=== PATIENT | female | born 1970 | race American Indian/Alaskan Native ===

== ENCOUNTER 2017-11-28 11:24 | Emergency (ER) | payer OTHER ==
[2017-11-28 11:34] VITALS: BP 156/97
--- NOTE | 2017-11-28 13:17 | Emergency Department Report ---
ED General Adult HPI - General Chief complaint: Upper Respiratory Infection Stated complaint: RUNNY NOSE/COUGH Time Seen by Provider: 11/28/17 12:47 Source: patient Mode of arrival: Ambulatory Limitations: No Limitations - History of Present Illness Initial comments: Patient presents to the emergency department for irritation to her vaginal region. The patient states that she has recently been using latex condoms and she has allergy to them when she noticed that she has some irritation to her vaginal region. Patient also complains of nasal congestion and a runny nose. Patient denies any vaginal discharge or pain upon urination. Symptoms have been present for greater than 3 days nothing seems to make his symptoms better or worse. She has no other complaints Severity scale (0 -10): 0 Quality: burning Consistency: constant Improves with: none Worsens with: none Associated Symptoms: denies other symptoms Treatments Prior to Arrival: none - Related Data Previous Rx's Medication Instructions Recorded Last Taken Type Lidocaine Viscous 2% 15 ml MM BID #120 udc 11/28/17 Unknown Rx Prednisone [predniSONE 10 mg 10 mg PO .TAPER #1 tab.ds.pk 11/28/17 Unknown Rx (6-Day Pack, 21 Tabs)] Allergies Allergy/AdvReac Type Severity Reaction Status Date / Time aspirin Allergy Rash Verified 11/28/17 11:35 latex Allergy Itching Verified 11/28/17 11:35 morphine Allergy Hives Verified 11/28/17 11:35 Penicillins Allergy Shortness Verified 11/28/17 11:35 of Breath cephalexin [From Keflex] AdvReac Shortness Verified 11/28/17 11:35 of Breath ED Review of Systems ROS: Stated complaint: RUNNY NOSE/COUGH Other details as noted in HPI Comment: All other systems reviewed and negative Constitutional: denies: chills, fever Eyes: denies: eye pain, eye discharge, vision change ENT: denies: ear pain, throat pain Respiratory: denies: cough, shortness of breath, wheezing Cardiovascular: denies: chest pain, palpitations Endocrine: no symptoms reported Gastrointestinal: denies: abdominal pain, nausea, diarrhea Genitourinary: denies: urgency, dysuria, discharge Musculoskeletal: denies: back pain, joint swelling, arthralgia Skin: denies: rash, lesions Neurological: denies: headache, weakness, paresthesias Psychiatric: denies: anxiety, depression Hematological/Lymphatic: denies: easy bleeding, easy bruising ED Past Medical Hx - Past Medical History Previous Medical History?: No - Surgical History Past Surgical History?: Yes Additional Surgical History: TUBALIGATION - Social History Smoking Status: Never Smoker Substance Use Type: Alcohol - Medications Home Medications: Home Medications Medication Instructions Recorded Confirmed Last Taken Type Lidocaine Viscous 2% 15 ml MM BID #120 udc 11/28/17 Unknown Rx Prednisone [predniSONE 10 mg 10 mg PO .TAPER #1 tab.ds.pk 11/28/17 Unknown Rx (6-Day Pack, 21 Tabs)] ED Physical Exam - General Limitations: No Limitations General appearance: alert, in no apparent distress - Head Head exam: Present: atraumatic, normocephalic - Eye Eye exam: Present: normal appearance - ENT ENT exam: Present: mucous membranes moist, other (pill nasal and oral mucosa that are clean in appearance) - Neck Neck exam: Present: normal inspection - Respiratory Respiratory exam: Present: normal lung sounds bilaterally. Absent: respiratory distress - Cardiovascular Cardiovascular Exam: Present: regular rate, normal rhythm. Absent: systolic murmur, diastolic murmur, rubs, gallop - GI/Abdominal GI/Abdominal exam: Present: soft, normal bowel sounds - External exam: Present: other (chaperoned by nurse Tayler Singh. external genitalia without lesions internally the labia minora have areas of plaque like lesions that appear to be due to irritation. No ulcer like lesions suggesting herpes are on exam) - Extremities Exam Extremities exam: Present: normal inspection - Back Exam Back exam: Present: normal inspection - Neurological Exam Neurological exam: Present: alert, oriented X3 - Psychiatric Psychiatric exam: Present: normal affect, normal mood - Skin Skin exam: Present: warm, dry, intact, normal color. Absent: rash ED Course Vital Signs 11/28/17 11:29 Temperature 98.2 F Pulse Rate 76 Respiratory 20 Rate Blood Pressure 156/97 O2 Sat by Pulse 100 Oximetry ED Medical Decision Making - Medical Decision Making Discussed with patient the need to use nasal Flonase and Zyrtec for allergies. Discussed with patient the need to use polyurethane condoms Critical care attestation.: If time is entered above; I have spent that time in minutes in the direct care of this critically ill patient, excluding procedure time. ED Disposition Clinical Impression: Vaginal irritation, Seasonal allergies Disposition: DC- TO HOME OR SELFCARE Is pt being admited?: No Does the pt Need Aspirin: No Condition: Stable Instructions: Allergic Rhinitis (ED) Prescriptions: Lidocaine Viscous 2% 15 ml MM BID #120 udc Prednisone [predniSONE 10 mg (6-Day Pack, 21 Tabs)] 10 mg PO .TAPER #1 tab.ds.pk Referrals: JOSE ANTONIO ORDAZ MD [Primary Care Provider] - 3-5 Days Time of Disposition: 13:17
== END 2017-11-28 13:40 | disposition home or self-care (01) ==
LOC: ED 11:24
DX: N89.8 Other specified noninflammatory disorders of vagina (principal); Z88.6 Allergy status to analgesic agent; Z91.040 Latex allergy status; Z88.0 Allergy status to penicillin; Z88.5 Allergy status to narcotic agent; Z98.51 Tubal ligation status
CPT/HCPCS: 99282

== ENCOUNTER 2018-09-11 14:01 | Emergency (ER) | payer SELFPAY ==
[2018-09-11] MEDS ORDERED: ZOFRAN ODT PO ONE ×2 (14:34→15:53)
--- NOTE | 2018-09-11 14:34 | Emergency Department Report ---
Addendum entered and electronically signed by GIOVANA WHELAN FNP 09/11/18 14:38: Blank Doc - Documentation Documentation: Correction patient will be seen on Main Side for further evaluation. Original Note: Blank Doc - Documentation Documentation: This is a 47 y.o. female that presents with alcohol withdrawal. PMH of ulcerative colitis. She reports nausea, vomiting, palpitations, and tremors. She reports last drink was 3 hours ago and craving a drink now. Patient states she tried to detox at home and couldn't tolerate withdrawals and continued drinking. Patient states she tried to check herself into [facility] and was sent here. Denies SI/HI, hallucinations, and diarrhea. Ordered: Labs Fast track for further evaluation.
[2018-09-11 15:16] LABS: BUN/Creatinine Ratio 4; Blood Urea Nitrogen 3 mg/dL (7-17); Calcium 8.8 mg/dL (8.4-10.2); Hemolysis Index 8
[2018-09-11 15:18] LABS: Hematocrit 33.7 % (30.3-42.9); Hemoglobin 10.9 gm/dl (10.1-14.3); Mean Corpuscular HGB Conc 32 % (30-34); Mean Corpuscular Volume 73 fl (79-97); Red Blood Count 4.62 M/mm3 (3.65-5.03); Red Cell Distribution Width 23.4 % (13.2-15.2)
[2018-09-11 15:19] LABS: Basophils % (Auto) 0.9 % (0.0-1.8); Eosinophils % (Auto) 0.4 % (0.0-4.3); Lymphocytes % (Auto) 48.5 % (13.4-35.0); Monocytes % (Auto) 5.6 % (0.0-7.3); Platelet Count 269 K/mm3 (140-440)
[2018-09-11 15:20] LABS: Basophils # (Auto) 0.1 K/mm3 (0.0-0.1); Lymphocytes # (Auto) 4.1 K/mm3 (1.2-5.4); Monocytes # (Auto) 0.5 K/mm3 (0.0-0.8)
[2018-09-11] MEDS ORDERED: ATIVAN PO ONE (15:52)
[2018-09-11 16:18] LABS: Bilirubin,Urine NEG (Negative); Blood,Urine NEG (Negative); Color,Urine Straw (Yellow); Protein,Urine <15 mg/dL mg/dL (Negative); Urobilinogen,Urine < 2.0 mg/dL (<2.0)
[2018-09-11 16:25] LABS: Amphetamine Screen,Urine PRESUMPTIVE NEGATIVE; Benzodiazepines Screen,Urine PRESUMPTIVE NEGATIVE; Cannabinoid Screen,Urine PRESUMPTIVE NEGATIVE; Cocaine Screen,Urine PRESUMPTIVE NEGATIVE; Methadone Screen,Urine PRESUMPTIVE NEGATIVE; Opiate Screen,Urine PRESUMPTIVE NEGATIVE
[2018-09-11 16:32] LABS: RBC,Urine < 1.0 /HPF (0.0-6.0); WBC,Urine < 1.0 /HPF (0.0-6.0)
--- NOTE | 2018-09-11 17:38 | Emergency Department Report ---
ED Alcohol HPI - General Chief Complaint: Alcohol Stated Complaint: DETOX Time Seen by Provider: 09/11/18 14:30 Source: patient Mode of arrival: Ambulatory Limitations: No Limitations - History of Present Illness Initial Comments: Mrs. Valenzuela is a very pleasant 47-year-old female with history of bipolar affective disorder, depression, alcoholism who presents with nausea vomiting and need for detox. She has been an alcoholic for several years. She normally drinks 2-3 bottles of alcohol beginning in the morning. She develops tremors and vomiting if she does not drink alcohol. She is motivated to stop drinking for the sake of her son at the bedside. She has been without medical or psychiatric care for 2 years. Previously took lithium to address bipolar disorder. She denies suicidal or homicidal ideation at this time. Recently she has developed severe anxiety. She does not want to leave home. She has become paranoid and uncomfortable unknown people. She was referred from [facility]. Complaint: desires rehab Last Drink: just [employer] Chronic Alcohol Use: Yes Recent Trauma: No Associated Symptoms: nausea, vomiting, tremors - Related Data Previous Rx's Medication Instructions Recorded Last Taken Type Lidocaine Viscous 2% 15 ml MM BID #120 udc 11/28/17 Unknown Rx Prednisone [predniSONE 10 mg 10 mg PO .TAPER #1 tab.ds.pk 11/28/17 Unknown Rx (6-Day Pack, 21 Tabs)] Promethazine [Phenergan TAB] 25 mg PO Q6HR PRN #10 tab 09/11/18 Unknown Rx Allergies Allergy/AdvReac Type Severity Reaction Status Date / Time aspirin Allergy Rash Verified 09/11/18 14:35 latex Allergy Itching Verified 09/11/18 14:35 morphine Allergy Hives Verified 09/11/18 14:35 Penicillins Allergy Shortness Verified 09/11/18 14:35 of Breath cephalexin [From Keflex] AdvReac Shortness Verified 09/11/18 14:35 of Breath ED Review of Systems ROS: Stated complaint: DETOX Other details as noted in HPI Comment: All other systems reviewed and negative Constitutional: denies: fever, malaise Respiratory: denies: cough Cardiovascular: denies: chest pain ED Past Medical Hx - Past Medical History Previous Medical History?: Yes Hx Psychiatric Treatment: Yes (ETOH abuse and bipolar disorder) - Surgical History Past Surgical History?: Yes Additional Surgical History: TUBAl LIGATION - Family History Family history: diabetes, hypertension, other (alcoholism in several family members) - Social History Smoking Status: Never Smoker Substance Use Type: Alcohol - Medications Home Medications: Home Medications Medication Instructions Recorded Confirmed Last Taken Type Lidocaine Viscous 2% 15 ml MM BID #120 udc 11/28/17 Unknown Rx Prednisone [predniSONE 10 mg 10 mg PO .TAPER #1 tab.ds.pk 11/28/17 Unknown Rx (6-Day Pack, 21 Tabs)] Promethazine [Phenergan TAB] 25 mg PO Q6HR PRN #10 tab 09/11/18 Unknown Rx ED Physical Exam - General Limitations: No Limitations General appearance: alert, in no apparent distress - Head Head exam: Present: atraumatic, normocephalic - Eye Eye exam: Present: normal appearance - ENT ENT exam: Present: mucous membranes moist - Neck Neck exam: Present: normal inspection, full ROM. Absent: tenderness, meningismus - Respiratory Respiratory exam: Present: normal lung sounds bilaterally. Absent: respiratory distress, wheezes, rales, rhonchi - Cardiovascular Cardiovascular Exam: Present: regular rate, normal rhythm, normal heart sounds. Absent: systolic murmur, diastolic murmur, rubs, gallop - GI/Abdominal GI/Abdominal exam: Present: soft, normal bowel sounds. Absent: distended, tenderness, guarding, rebound - Extremities Exam Extremities exam: Present: normal inspection - Back Exam Back exam: Present: normal inspection - Neurological Exam Neurological exam: Present: alert, oriented X3 - Psychiatric Psychiatric exam: Present: normal affect, normal mood - Skin Skin exam: Present: warm, dry, intact, normal color. Absent: rash ED Course Vital Signs 09/11/18 09/11/18 14:31 16:06 Temperature 97.8 F Pulse Rate 103 H 91 H Respiratory 20 13 Rate Blood Pressure 154/103 151/85 [Right] O2 Sat by Pulse 98 97 Oximetry ED Medical Decision Making - Lab Data Result diagrams: 09/11/18 14:49 09/11/18 14:49 Laboratory Results - last 24 hr 09/11/18 09/11/18 09/11/18 14:49 14:49 14:49 WBC RBC Hgb Hct MCV MCH MCHC RDW Plt Count Lymph % (Auto) [place] % (Auto) Eos % (Auto) Baso % (Auto) Lymph # Frederick # Eos # Baso # Seg Neutrophils % Seg Neutrophils # Sodium 140 Potassium 3.3 L Chloride 97.1 L Carbon Dioxide 28 Anion Gap 18 BUN 3 L Creatinine 0.7 Estimated GFR > 60 BUN/Creatinine Ratio 4 Glucose 117 H Calcium 8.8 Urine Color Urine Turbidity Urine pH Ur Specific [place] Urine Protein Urine Glucose (UA) Urine Ketones Urine Blood Urine Nitrite Urine Bilirubin Urine Urobilinogen Ur Leukocyte Esterase Urine WBC (Auto) Urine RBC (Auto) U Epithel Cells (Auto) Salicylates < 0.3 L Urine Opiates Screen Urine Methadone Screen Acetaminophen < 5.0 L Ur Barbiturates Screen Ur Phencyclidine Scrn Ur Amphetamines Screen U Benzodiazepines Scrn Urine Cocaine Screen U Marijuana (THC) Screen Drugs of Abuse Note Plasma/Serum Alcohol 09/11/18 09/11/18 09/11/18 14:49 14:49 15:35 WBC 8.5 RBC 4.62 Hgb 10.9 Hct 33.7 MCV 73 L MCH 24 L MCHC 32 RDW 23.4 H Plt Count 269 Lymph % (Auto) 48.5 H Frederick % (Auto) 5.6 Eos % (Auto) 0.4 Baso % (Auto) 0.9 Lymph # 4.1 Frederick # 0.5 Eos # 0.0 Baso # 0.1 Seg Neutrophils % 44.6 Seg Neutrophils # 3.8 Sodium Potassium Chloride Carbon Dioxide Anion Gap BUN Creatinine Estimated GFR BUN/Creatinine Ratio Glucose Calcium Urine Color Straw Urine Turbidity Clear Urine pH 6.0 Ur Specific [place] 1.002 L Urine Protein <15 mg/dl Urine Glucose (UA) Neg Urine Ketones Neg Urine Blood Neg Urine Nitrite Neg Urine Bilirubin Neg Urine Urobilinogen < 2.0 Ur Leukocyte Esterase Neg Urine WBC (Auto) < 1.0 Urine RBC (Auto) < 1.0 U Epithel Cells (Auto) < 1.0 Salicylates Urine Opiates Screen Urine Methadone Screen Acetaminophen Ur Barbiturates Screen Ur Phencyclidine Scrn Ur Amphetamines Screen U Benzodiazepines Scrn Urine Cocaine Screen U Marijuana (THC) Screen Drugs of Abuse Note Plasma/Serum Alcohol 0.34 H 09/11/18 15:35 WBC RBC Hgb Hct MCV MCH MCHC RDW Plt Count Lymph % (Auto) [place] % (Auto) Eos % (Auto) Baso % (Auto) Lymph # Frederick # Eos # Baso # Seg Neutrophils % Seg Neutrophils # Sodium Potassium Chloride Carbon Dioxide Anion Gap BUN Creatinine Estimated GFR BUN/Creatinine Ratio Glucose Calcium Urine Color Urine Turbidity Urine pH Ur Specific [place] Urine Protein Urine Glucose (UA) Urine Ketones Urine Blood Urine Nitrite Urine Bilirubin Urine Urobilinogen Ur Leukocyte Esterase Urine WBC (Auto) Urine RBC (Auto) U Epithel Cells (Auto) Salicylates Urine Opiates Screen Presumptive negative Urine Methadone Screen Presumptive negative Acetaminophen Ur Barbiturates Screen Presumptive negative Ur Phencyclidine Scrn Presumptive negative Ur Amphetamines Screen Presumptive negative U Benzodiazepines Scrn Presumptive negative Urine Cocaine Screen Presumptive negative U Marijuana (THC) Screen Presumptive negative Drugs of Abuse Note Disclamer Plasma/Serum Alcohol - Medical Decision Making Ms. Valenzuela is a 46-year-old female presents with request for alcohol rehabilitation. She has evidence of acute alcohol ingestion. Without chest or abdominal pain present I feel the nausea vomiting is due to over imbibing. No indication of alcohol withdrawal. Our mental health nurse assessor provided outpatient referral to [facility]. Patient is discharged home in stable condition. Critical care attestation.: If time is entered above; I have spent that time in minutes in the direct care of this critically ill patient, excluding procedure time. ED Disposition Clinical Impression: Acute alcohol intoxication, Alcoholism, Encounter for alcohol rehabilitation Disposition: DC-01 TO HOME OR SELFCARE Is pt being admited?: No Does the pt Need Aspirin: No Condition: Stable Additional Instructions: Please go to [facility] tomorrow at 8:00 AM Prescriptions: Promethazine [Phenergan TAB] 25 mg PO Q6HR PRN #10 tab PRN Reason: Nausea
[2018-09-11 17:52] VITALS: BP 115/62
== END 2018-09-11 18:10 | disposition home or self-care (01) ==
LOC: ED 14:01
DX: F10.120 Alcohol abuse with intoxication, uncomplicated (principal); Z71.41 Alcohol abuse counseling and surveillance of alcoholic; F31.9 Bipolar disorder, unspecified; Z88.6 Allergy status to analgesic agent; Z91.040 Latex allergy status; Z88.0 Allergy status to penicillin; Z88.1 Allergy status to other antibiotic agents; Z98.51 Tubal ligation status
CPT/HCPCS: 36415; 80048; 80307; 81001; 85025; 99283; G0480; 80320; Q0162

== ENCOUNTER 2019-07-07 17:03 | Emergency (ER) | payer OTHER ==
--- NOTE | 2019-07-07 17:19 | Event Note ---
ED Screening Note Date of service: 07/07/19 Time: 17:14 ED Screening Note: 48 y o female presents with chest pain with inhalation radiating right shoulder pt has no pMH This initial assessment/diagnostic orders/clinical plan/treatment(s) is/are subject to change based on patients health status, clinical progression and re- assessment by fellow clinical providers in the ED. Further treatment and workup at subsequent clinical providers discretion. Patient/guardian urged not to elope from the ED as their condition may be serious if not clinically assessed and managed. Initial orders include: labs,
--- NOTE | 2019-07-07 18:11 | XRay Report ---
CHEST 2 VIEWS INDICATION: pain with inha. COMPARISON: None. FINDINGS: Support devices: None. Heart: Within normal limits. Lungs/Pleura: Mild basilar atelectasis. No significant infiltrate. No significant pleural effusion. IMPRESSION: Mild basilar atelectasis. Signer Name: Chaim Tomlin MD Signed: 07/07/2019 6:07 PM Workstation Name: [id number]
[2019-07-07 19:12] LABS: Basophils # (Auto) 0.1 K/mm3 (0.0-0.1); Basophils % (Auto) 0.8 % (0.0-1.8); Eosinophils # (Auto) 0.2 K/mm3 (0.0-0.4); Eosinophils % (Auto) 1.4 % (0.0-4.3); Hematocrit 40.2 % (30.3-42.9); Hemoglobin 13.1 gm/dl (10.1-14.3); Lymphocytes % (Auto) 16.4 % (13.4-35.0); Mean Corpuscular HGB Conc 33 % (30-34); Mean Corpuscular Volume 83 fl (79-97); Monocytes # (Auto) 1.4 K/mm3 (0.0-0.8); Monocytes % (Auto) 11.3 % (0.0-7.3); Platelet Count 330 K/mm3 (140-440); Red Blood Count 4.86 M/mm3 (3.65-5.03); Red Cell Distribution Width 14.2 % (13.2-15.2)
[2019-07-07 20:06] LABS: BUN/Creatinine Ratio 10; Blood Urea Nitrogen 7 mg/dL (7-17); Hemolysis Index 7
[2019-07-07 20:07] LABS: Creatine Kinase MB < 1.0 ng/mL (0.0-4.0)
[2019-07-07] MEDS ORDERED: traMADol 50 MG TAB PO ONE (20:30)
--- NOTE | 2019-07-07 20:51 | Emergency Department Report ---
ED General Adult HPI - General Chief complaint: Dyspnea/Respdistress Stated complaint: SOB Source: patient Mode of arrival: Ambulatory Limitations: No Limitations - History of Present Illness Initial comments: Ms Valenzuela is a 48 y/o aaf who presents for right lateral chest pain and sob x 3 days , pt denies sob no n/v no wheezing no diaphoresis. symptoms are exacerbated by activity , pt is relieved by nothing tried, pt denies substance . Onset/Timin -: Gradual, days(s) Location: chest Radiation: non-radiation Severity scale (0 -10): 5 Quality: sharp Consistency: intermittent Improves with: none Worsens with: movement Associated Symptoms: cough. denies: shortness of breath Treatments Prior to Arrival: none - Related Data Previous Rx's Medication Instructions Recorded Last Taken Type Lidocaine Viscous 2% 15 ml MM BID #120 udc 11/28/17 Unknown Rx Prednisone [predniSONE 10 mg 10 mg PO .TAPER #1 tab.ds.pk 11/28/17 Unknown Rx (6-Day Pack, 21 Tabs)] Promethazine [Phenergan] 25 mg PO Q6HR PRN #10 tab 09/11/18 Unknown Rx Azithromycin [Zithromax Z-ISIS] 250 mg PO DAILY #6 tab 07/07/19 Unknown Rx traMADoL [Ultram] 50 mg PO Q6HR PRN #12 tablet 07/07/19 Unknown Rx Allergies Allergy/AdvReac Type Severity Reaction Status Date / Time aspirin Allergy Rash Verified 09/11/18 14:35 latex Allergy Itching Verified 09/11/18 14:35 morphine Allergy Hives Verified 09/11/18 14:35 Penicillins Allergy Shortness Verified 09/11/18 14:35 of Breath cephalexin [From Keflex] AdvReac Shortness Verified 09/11/18 14:35 of Breath ED Review of Systems ROS: Stated complaint: SOB Other details as noted in HPI Constitutional: denies: chills, fever Eyes: denies: eye pain, eye discharge, vision change ENT: denies: ear pain, throat pain Respiratory: denies: cough, shortness of breath, wheezing Cardiovascular: chest pain (chest wall pain ). denies: palpitations Endocrine: no symptoms reported Gastrointestinal: denies: abdominal pain, nausea, diarrhea Genitourinary: denies: urgency, dysuria, discharge Musculoskeletal: denies: back pain, joint swelling, arthralgia Skin: denies: rash, lesions Neurological: denies: headache, weakness, paresthesias Psychiatric: denies: anxiety, depression Hematological/Lymphatic: denies: easy bleeding, easy bruising ED Past Medical Hx - Past Medical History Previous Medical History?: Yes Hx Hypertension: Yes (no meds) Hx Psychiatric Treatment: Yes (ETOH abuse and bipolar disorder) - Surgical History Past Surgical History?: Yes Additional Surgical History: TUBAl LIGATION - Social History Smoking Status: Never Smoker Substance Use Type: Alcohol - Medications Home Medications: Home Medications Medication Instructions Recorded Confirmed Last Taken Type Lidocaine Viscous 2% 15 ml MM BID #120 udc 11/28/17 Unknown Rx Prednisone [predniSONE 10 mg 10 mg PO .TAPER #1 tab.ds.pk 11/28/17 Unknown Rx (6-Day Pack, 21 Tabs)] Promethazine [Phenergan] 25 mg PO Q6HR PRN #10 tab 09/11/18 Unknown Rx Azithromycin [Zithromax Z-ISIS] 250 mg PO DAILY #6 tab 07/07/19 Unknown Rx traMADoL [Ultram] 50 mg PO Q6HR PRN #12 tablet 07/07/19 Unknown Rx ED Physical Exam - General Limitations: No Limitations General appearance: alert, in no apparent distress - Head Head exam: Present: atraumatic, normocephalic - Eye Eye exam: Present: normal appearance, PERRL, EOMI Pupils: Present: normal accommodation - ENT ENT exam: Present: mucous membranes moist - Neck Neck exam: Present: normal inspection, full ROM. Absent: tenderness - Respiratory Respiratory exam: Present: normal lung sounds bilaterally, chest wall tenderness (right lateral chest wall ). Absent: respiratory distress, wheezes, stridor - Cardiovascular Cardiovascular Exam: Present: regular rate, normal rhythm, normal heart sounds. Absent: systolic murmur, diastolic murmur, rubs, gallop - GI/Abdominal GI/Abdominal exam: Present: soft, normal bowel sounds. Absent: distended, tenderness, bruit, hernia - Rectal Rectal exam: Present: deferred - Extremities Exam Extremities exam: Present: normal inspection, full ROM, normal capillary refill. Absent: tenderness, pedal edema, joint swelling - Back Exam Back exam: Present: normal inspection, full ROM. Absent: tenderness, CVA tenderness (R), CVA tenderness (L) - Neurological Exam Neurological exam: Present: alert, oriented X3, CN II-XII intact, normal gait, reflexes normal. Absent: motor sensory deficit - Psychiatric Psychiatric exam: Present: normal affect, normal mood - Skin Skin exam: Present: warm, dry, intact, normal color. Absent: rash ED Course Vital Signs 07/07/19 07/07/19 07/08/19 17:07 21:03 00:34 Temperature 98.8 F Pulse Rate 108 H Respiratory 20 20 20 Rate Blood Pressure 154/91 O2 Sat by Pulse 98 Oximetry ED Medical Decision Making - Lab Data Result diagrams: 07/07/19 18:07 07/07/19 18:07 - Radiology Data Radiology results: report reviewed, image reviewed cta neg for pe, cxr bilat atelectasis mild - Medical Decision Making PERC Score Age ?50 No0 HR ?100 Yes+1 O? sat on room air <95% No0 Unilateral leg swelling No0 Hemoptysis No0 Recent surgery or trauma Surgery or trauma ?4 weeks ago requiring treatment with general anesthesia No0 Prior PE or DVT No0 Hormone use Oral contraceptives, hormone replacement or estrogenic hormones use in males or female patients No0 1 criteria If any criteria are positive, the PERC rule cannot be used to rule out PE in this patient. Wells Score: Why Use Clinical signs and symptoms of DVT No0 PE is #1 diagnosis OR equally likely No0 Heart rate > 100 Yes+1.5 Immobilization at least 3 days OR surgery in the previous 4 weeks No0 Previous, objectively diagnosed PE or DVT No0 Hemoptysis No0 Malignancy w/ treatment within 6 months or palliative No0 1.5 points Low risk group: 1.3% chance of PE in an ED population. Pt denies fall injury or trauma, there is no crepitus, no swelling, no bruising, pain is reproducible to palpation. this is likely early CAP, plan , zpack, albuterol, ultram follow up with pcp in 2-3 days , return to ed if symptoms worsen. Critical care attestation.: If time is entered above; I have spent that time in minutes in the direct care of this critically ill patient, excluding procedure time. ED Disposition Clinical Impression: CAP (community acquired pneumonia) Qualifiers: Lung location: unspecified part of lung Disposition: DC-01 TO HOME OR SELFCARE Is pt being admited?: No Does the pt Need Aspirin: No Condition: Stable Instructions: Costochondritis (ED), Community-acquired Pneumonia (ED), Bacteri al Pneumonia (ED) Prescriptions: traMADoL [Ultram] 50 mg PO Q6HR PRN #12 tablet PRN Reason: Pain Azithromycin [Zithromax Z-ISIS] 250 mg PO DAILY #6 tab Referrals: [facility] [Outside] - 3-5 Days Forms: Work/School Release Form(ED) Time of Disposition: 01:14
[2019-07-08] MEDS ORDERED: HYDROcodone/ACETAMINOPHEN 5-325 MG TAB PO ONE (00:29)
[2019-07-08] MEDS ORDERED: HYDROcodone/ACETAMINOPHEN 5-325 MG TAB ONE (00:33)
[2019-07-08 00:47] LABS: Bacteria,Urine 1+ /HPF (Negative); Bilirubin,Urine NEG (Negative); Blood,Urine LG (Negative); Color,Urine Yellow (Yellow); Mucus,Urine FEW /HPF; Protein,Urine <15 mg/dL mg/dL (Negative); Urobilinogen,Urine < 2.0 mg/dL (<2.0)
--- NOTE | 2019-07-08 01:01 | Cat Scan Report ---
CTA CHEST WITH IV CONTRAST INDICATION / CLINICAL INFORMATION: chest pain , sob, pos ddimer. TECHNIQUE: Axial CT images were obtained through the chest after injection of IV contrast. 3 plane MIP and/or 3D reconstructions were produced. All CT scans at this location are performed using CT dose reduction f or ALARA by means of automated exposure control. COMPARISON: None available. FINDINGS: PULMONARY ARTERIES: No pulmonary emboli. THORACIC AORTA: No significant abnormality. HEART: No significant abnormality. CORONARY ARTERIES: No significant calcification. PLEURA: No pleural effusion. No pneumothorax. LYMPH NODES: No significant adenopathy. LUNGS: Minimum atelectasis both lower lobes. ADDITIONAL FINDINGS: None. UPPER ABDOMEN: No acute findings. SKELETAL STRUCTURES: No significant osseous abnormality. IMPRESSION: 1. No CT evidence for pulmonary embolism. 2. Subsegmental atelectasis both lower lobes Signer Name: John Richey MD Signed: 07/08/2019 12:56 AM Workstation Name: [id number]
[2019-07-08 02:03] VITALS: BP 124/79
== END 2019-07-08 02:20 | disposition home or self-care (01) ==
LOC: ED 17:03
DX: J18.9 Pneumonia, unspecified organism (principal); I10 Essential (primary) hypertension; F31.9 Bipolar disorder, unspecified; Z98.51 Tubal ligation status; Z79.899 Other long term (current) drug therapy; Z91.040 Latex allergy status; Z88.0 Allergy status to penicillin; Z88.6 Allergy status to analgesic agent; Z88.8 Allergy status to other drugs, medicaments and biological substances
CPT/HCPCS: 36415; 71046; 71275; 80048; 81001; 82550; 82553; 83880; 84484; 85025; 85379; 93005; 93010; 99284; Q9967; 80320; G0480

== ENCOUNTER 2020-05-26 22:45 | Emergency (ER) | payer OTHER ==
[2020-05-27 00:37] VITALS: BP 143/85
[2020-05-27] MEDS ORDERED: predniSONE 20 MG TAB PO ONE (02:13)
[2020-05-27] MEDS ORDERED: HYDROcodone/ACETAMINOPHEN 7.5-325MG TAB PO ONE (02:14)
[2020-05-27] MEDS ORDERED: ONDANSETRON 4 MG ODT TAB PO ONE (02:14)
[2020-05-27] MEDS ORDERED: COLCHICINE 0.6 MG CAP PO ONE (02:14)
--- NOTE | 2020-05-27 02:51 | Emergency Department Report ---
ED Extremity Problem HPI - General Chief complaint: Extremity Problem,Nontraumatic Stated complaint: LF FOOT SWOLLEN Source: patient Mode of arrival: Ambulatory Limitations: No Limitations - History of Present Illness Initial comments: Patient is a 49-year-old -[place] female with history of hypertension and chronic gouty arthropathy, chronic alcohol abuse and bipolar disorder who presents to the ED with complaint of acute onset persistent severe left ankle pain and swelling for the last 12 hours, stating that she believes it is the flare of her gout. Patient states that the pain is worsened such that she is unable to bear weight on the left ankle because of severe pain. Patient admits to having been eating seafood, red meat and alcohol consumption. Patient denies traumatic injury, heavy lifting, fall, numbness and tingling or weakness of left leg, dizziness, syncope, fever, chills, chest pain or shortness of breath or heavy lifting. MD Complaint: extremity pain (Left ankle pain and swelling), extremity swelling (left ankle pain and swelling), joint swelling (left ankle pain and swelling), joint paint (left ankle swelling) -: Sudden, hour(s) (12) Location: lower extremity (left ankle) History of Same: No -: Yes arthralgia (left ankle pain and swelling) Radiation: none Severity scale (0 -10): 7 Quality: aching, sharp, constant Consistency: constant Improves with: nothing Worsens with: weight bearing, walking, palpation Associated Symptoms: denies other symptoms, arthralgias (left ankle) - Related Data Previous Rx's Medication Instructions Recorded Last Taken Type Lidocaine Viscous 2% 15 ml MM BID #120 udc 11/28/17 Unknown Rx Prednisone [predniSONE 10 mg 10 mg PO .TAPER #1 tab.ds.pk 11/28/17 Unknown Rx (6-Day Pack, 21 Tabs)] Promethazine [Phenergan] 25 mg PO Q6HR PRN #10 tab 09/11/18 Unknown Rx Azithromycin [Zithromax Z-ISIS] 250 mg PO DAILY #6 tab 07/07/19 Unknown Rx traMADoL [Ultram] 50 mg PO Q6HR PRN #12 tablet 07/07/19 Unknown Rx Colchicine 0.6 mg PO Q8H PRN #15 capsule 05/27/20 Unknown Rx Indomethacin 50 mg PO Q8H PRN #45 capsule 05/27/20 Unknown Rx predniSONE [Deltasone] 60 mg PO QDAY #15 tab 05/27/20 Unknown Rx traMADoL [Ultram] 50 mg PO Q6HR PRN #12 tablet 05/27/20 Unknown Rx Allergies Allergy/AdvReac Type Severity Reaction Status Date / Time aspirin Allergy Rash Verified 09/11/18 14:35 latex Allergy Itching Verified 09/11/18 14:35 morphine Allergy Hives Verified 09/11/18 14:35 Penicillins Allergy Shortness Verified 09/11/18 14:35 of Breath cephalexin [From Keflex] AdvReac Shortness Verified 09/11/18 14:35 of Breath ED Review of Systems ROS: Stated complaint: LF FOOT SWOLLEN Other details as noted in HPI Constitutional: denies: chills, fever Eyes: denies: eye pain, eye discharge, vision change ENT: denies: ear pain, throat pain Respiratory: denies: cough, shortness of breath, wheezing Cardiovascular: denies: chest pain, palpitations Endocrine: no symptoms reported Gastrointestinal: denies: abdominal pain, nausea, diarrhea Genitourinary: denies: urgency, dysuria, discharge Musculoskeletal: joint swelling (left ankle), arthralgia (left ankle pain). denies: back pain Skin: denies: rash, lesions Neurological: denies: headache, weakness, paresthesias Psychiatric: denies: anxiety, depression Hematological/Lymphatic: denies: easy bleeding, easy bruising ED Past Medical Hx - Past Medical History Hx Hypertension: Yes (no meds) Hx Psychiatric Treatment: Yes (ETOH abuse and bipolar disorder) - Surgical History Additional Surgical History: TUBAl LIGATION - Social History Smoking Status: Never Smoker Substance Use Type: None - Medications Home Medications: Home Medications Medication Instructions Recorded Confirmed Last Taken Type Lidocaine Viscous 2% 15 ml MM BID #120 udc 11/28/17 Unknown Rx Prednisone [predniSONE 10 mg 10 mg PO .TAPER #1 tab.ds.pk 11/28/17 Unknown Rx (6-Day Pack, 21 Tabs)] Promethazine [Phenergan] 25 mg PO Q6HR PRN #10 tab 09/11/18 Unknown Rx Azithromycin [Zithromax Z-ISIS] 250 mg PO DAILY #6 tab 07/07/19 Unknown Rx traMADoL [Ultram] 50 mg PO Q6HR PRN #12 tablet 07/07/19 Unknown Rx Colchicine 0.6 mg PO Q8H PRN #15 capsule 05/27/20 Unknown Rx Indomethacin 50 mg PO Q8H PRN #45 capsule 05/27/20 Unknown Rx predniSONE [Deltasone] 60 mg PO QDAY #15 tab 05/27/20 Unknown Rx traMADoL [Ultram] 50 mg PO Q6HR PRN #12 tablet 05/27/20 Unknown Rx ED Physical Exam - General Limitations: No Limitations General appearance: alert, in no apparent distress - Head Head exam: Present: atraumatic, normocephalic, normal inspection - Eye Eye exam: Present: normal appearance, PERRL, EOMI Pupils: Present: normal accommodation - ENT ENT exam: Present: normal exam, normal orophraynx, mucous membranes moist, TM's normal bilaterally, normal external ear exam - Neck Neck exam: Present: normal inspection, full ROM - Respiratory Respiratory exam: Present: normal lung sounds bilaterally. Absent: respiratory distress, wheezes, rales, rhonchi, chest wall tenderness, accessory muscle use, decreased breath sounds, prolonged expiratory - Cardiovascular Cardiovascular Exam: Present: regular rate, normal rhythm, normal heart sounds. Absent: systolic murmur, diastolic murmur, rubs, gallop - GI/Abdominal GI/Abdominal exam: Present: soft, normal bowel sounds. Absent: tenderness, guarding, hyperactive bowel sounds, hypoactive bowel sounds, organomegaly - Extremities Exam Extremities exam: Present: normal inspection, tenderness (Palpable left ankle tenderness and swelling), normal capillary refill, joint swelling (Palpable left ankle swelling and tenderness) - Back Exam Back exam: Present: normal inspection, full ROM. Absent: tenderness, CVA tenderness (R), CVA tenderness (L), muscle spasm, paraspinal tenderness, vertebral tenderness - Neurological Exam Neurological exam: Present: alert, oriented X3, CN II-XII intact, normal gait, reflexes normal - Psychiatric Psychiatric exam: Present: normal affect, normal mood - Skin Skin exam: Present: warm, dry, intact, normal color. Absent: rash ED Course Vital Signs 05/27/20 00:20 Temperature 98.0 F Pulse Rate 93 H Respiratory 17 Rate Blood Pressure 143/85 O2 Sat by Pulse 94 Oximetry ED Medical Decision Making - Medical Decision Making This is a 49-year-old -[place] female with history of hypertension and chronic gouty arthropathy, chronic alcohol abuse and bipolar disorder who presents to the ED with complaint of acute onset persistent severe left ankle pain and swelling for the last 12 hours, stating that she believes it is the flare of her gout. Patient states that the pain is worsened such that she is unable to bear weight on the left ankle because of severe pain. Patient admits to having been eating seafood, red meat and alcohol consumption. In the ED, patient is alert and oriented x3 and is not in distress. Patient was treated for pain in the ED and discharged home on pain medications and oral steroids. Patient was advised to return to the ED immediately if symptoms get worse, otherwise follow-up with her primary care physician in 5 to 7 days for reevaluation. - Differential Diagnosis Gouty arthropathy; Osteoarthritis; Muscle strain; tendonitis Critical care attestation.: If time is entered above; I have spent that time in minutes in the direct care of this critically ill patient, excluding procedure time. ED Disposition Clinical Impression: Acute gouty arthropathy, Left ankle tendonitis Disposition: TO HOME OR SELFCARE Is pt being admited?: No Does the pt Need Aspirin: No Condition: Stable Instructions: Low-Purine Eating Plan Additional Instructions: Take medication with food, drink plenty of fluids and follow-up with your primary care physician in 5 to 7 days for reevaluation. Return to the ED immediately if symptoms get worse. Prescriptions: Colchicine 0.6 mg PO Q8H PRN #15 capsule PRN Reason: Pain , Severe (7-10) predniSONE [Deltasone] 60 mg PO QDAY #15 tab Indomethacin 50 mg PO Q8H PRN #45 capsule PRN Reason: Pain , Severe (7-10) traMADoL [Ultram] 50 mg PO Q6HR PRN #12 tablet PRN Reason: Pain Referrals: [facility] [Provider Group] - 7-10 days Forms: Work/School Release Form(ED) Time of Disposition: 02:56 Print Language: SLOVAK
== END 2020-05-27 03:20 | disposition home or self-care (01) ==
LOC: ED 22:45
DX: M12.872 Other specific arthropathies, not elsewhere classified, left ankle and foot (principal); I10 Essential (primary) hypertension; Z98.51 Tubal ligation status; Z79.899 Other long term (current) drug therapy; Z88.6 Allergy status to analgesic agent; Z88.0 Allergy status to penicillin; Z88.8 Allergy status to other drugs, medicaments and biological substances
CPT/HCPCS: 99282; J7512; Q0162

== ENCOUNTER 2020-07-28 22:48 | Emergency (ER) | payer OTHER ==
[2020-07-28 23:05] VITALS: BP 156/81
--- NOTE | 2020-07-29 00:38 | Event Note ---
ED Screening Note Date of service: 07/29/20 Time: 00:37 ED Screening Note: Patient is a 49-year-old -Hung[place] female who presents for right buttocks abscess x2 days. There is been no fevers, no chills, nausea /vomiting, abdominal pain. This initial assessment/diagnostic orders/clinical plan/treatment(s) is/are subject to change based on patients health status, clinical progression and re- assessment by fellow clinical providers in the ED. Further treatment and workup at subsequent clinical providers discretion. Patient/guardian urged not to elope from the ED as their condition may be serious if not clinically assessed and managed. Initial orders include: Patient will need a room for evaluation and treatment.
--- NOTE | 2020-07-29 07:36 | Emergency Department Report ---
- General Chief complaint: Skin/Abscess/Foreign Body Stated complaint: ABSCESS Time Seen by Provider: 07/29/20 07:27 Source: patient Mode of arrival: Ambulatory Limitations: No Limitations - History of Present Illness Initial comments: Patient is 49 years old female with no significant past medical history. Patient presented to the ER complaining of abscess to the right buttock for the last 7 days. Patient stated that his already started draining. Patient stated that she went to [facility] clinic and she was given Bactrim with no improvement. Patient denied any fever or chills. No nausea or vomiting. MD complaint: abscess/boil -: days(s) (7) Location: buttocks Severity: moderate Severity scale (0 -10): 7 Quality: stabbing Consistency: constant Associated symptoms: denies other symptoms Treatments Prior to Arrival: antibiotic - Related Data Previous Rx's Medication Instructions Recorded Last Taken Type Lidocaine Viscous 2% 15 ml MM BID #120 udc 11/28/17 Unknown Rx Prednisone [predniSONE 10 mg 10 mg PO .TAPER #1 tab.ds.pk 11/28/17 Unknown Rx (6-Day Pack, 21 Tabs)] Promethazine [Phenergan] 25 mg PO Q6HR PRN #10 tab 09/11/18 Unknown Rx Azithromycin [Zithromax Z-ISIS] 250 mg PO DAILY #6 tab 07/07/19 Unknown Rx traMADoL [Ultram] 50 mg PO Q6HR PRN #12 tablet 07/07/19 Unknown Rx Colchicine 0.6 mg PO Q8H PRN #15 capsule 05/27/20 Unknown Rx Indomethacin 50 mg PO Q8H PRN #45 capsule 05/27/20 Unknown Rx predniSONE [Deltasone] 60 mg PO QDAY #15 tab 05/27/20 Unknown Rx traMADoL [Ultram] 50 mg PO Q6HR PRN #12 tablet 05/27/20 Unknown Rx Allergies Allergy/AdvReac Type Severity Reaction Status Date / Time aspirin Allergy Rash Verified 09/11/18 14:35 latex Allergy Itching Verified 09/11/18 14:35 morphine Allergy Hives Verified 09/11/18 14:35 Penicillins Allergy Shortness Verified 09/11/18 14:35 of Breath cephalexin [From Keflex] AdvReac Shortness Verified 09/11/18 14:35 of Breath Abscess Boil HPI - HPI Chief Complaint: Skin/Abscess/Foreign Body Stated Complaint: ABSCESS Time Seen by Provider: 07/29/20 07:27 Home Medications: Previous Rx's Medication Instructions Recorded Last Taken Type Lidocaine Viscous 2% 15 ml MM BID #120 udc 11/28/17 Unknown Rx Prednisone [predniSONE 10 mg 10 mg PO .TAPER #1 tab.ds.pk 11/28/17 Unknown Rx (6-Day Pack, 21 Tabs)] Promethazine [Phenergan] 25 mg PO Q6HR PRN #10 tab 09/11/18 Unknown Rx Azithromycin [Zithromax Z-ISIS] 250 mg PO DAILY #6 tab 07/07/19 Unknown Rx traMADoL [Ultram] 50 mg PO Q6HR PRN #12 tablet 07/07/19 Unknown Rx Colchicine 0.6 mg PO Q8H PRN #15 capsule 05/27/20 Unknown Rx Indomethacin 50 mg PO Q8H PRN #45 capsule 05/27/20 Unknown Rx predniSONE [Deltasone] 60 mg PO QDAY #15 tab 05/27/20 Unknown Rx traMADoL [Ultram] 50 mg PO Q6HR PRN #12 tablet 05/27/20 Unknown Rx Allergies/Adverse Reactions: Allergies Allergy/AdvReac Type Severity Reaction Status Date / Time aspirin Allergy Rash Verified 09/11/18 14:35 latex Allergy Itching Verified 09/11/18 14:35 morphine Allergy Hives Verified 09/11/18 14:35 Penicillins Allergy Shortness Verified 09/11/18 14:35 of Breath cephalexin [From Keflex] AdvReac Shortness Verified 09/11/18 14:35 of Breath ED Review of Systems ROS: Stated complaint: ABSCESS Other details as noted in HPI Comment: All other systems reviewed and negative Constitutional: denies: chills, fever Respiratory: denies: cough, shortness of breath, SOB with exertion, SOB at rest Cardiovascular: denies: chest pain, palpitations Gastrointestinal: denies: abdominal pain, nausea, vomiting Musculoskeletal: denies: back pain Neurological: denies: headache, weakness, numbness, paresthesias, confusion, abnormal gait ED Past Medical Hx - Past Medical History Previous Medical History?: No Hx Hypertension: Yes (no meds) Hx Psychiatric Treatment: Yes (ETOH abuse and bipolar disorder) - Surgical History Past Surgical History?: Yes Additional Surgical History: TUBAl LIGATION - Social History Smoking Status: Never Smoker Substance Use Type: None - Medications Home Medications: Home Medications Medication Instructions Recorded Confirmed Last Taken Type Lidocaine Viscous 2% 15 ml MM BID #120 udc 11/28/17 Unknown Rx Prednisone [predniSONE 10 mg 10 mg PO .TAPER #1 tab.ds.pk 11/28/17 Unknown Rx (6-Day Pack, 21 Tabs)] Promethazine [Phenergan] 25 mg PO Q6HR PRN #10 tab 09/11/18 Unknown Rx Azithromycin [Zithromax Z-ISIS] 250 mg PO DAILY #6 tab 07/07/19 Unknown Rx traMADoL [Ultram] 50 mg PO Q6HR PRN #12 tablet 07/07/19 Unknown Rx Colchicine 0.6 mg PO Q8H PRN #15 capsule 05/27/20 Unknown Rx Indomethacin 50 mg PO Q8H PRN #45 capsule 05/27/20 Unknown Rx predniSONE [Deltasone] 60 mg PO QDAY #15 tab 05/27/20 Unknown Rx traMADoL [Ultram] 50 mg PO Q6HR PRN #12 tablet 05/27/20 Unknown Rx ED Physical Exam - General Limitations: No Limitations General appearance: alert, in no apparent distress - Head Head exam: Present: atraumatic, normocephalic, normal inspection - Eye Eye exam: Present: normal appearance - ENT ENT exam: Present: normal exam, normal orophraynx, mucous membranes moist - Neck Neck exam: Present: normal inspection, full ROM. Absent: tenderness, meningismus - Respiratory Respiratory exam: Present: normal lung sounds bilaterally - Cardiovascular Cardiovascular Exam: Present: regular rate, normal rhythm, normal heart sounds - GI/Abdominal GI/Abdominal exam: Present: soft, normal bowel sounds. Absent: distended, tenderness, guarding, rebound, rigid, organomegaly, mass, bruit, pulsatile mass, hernia - Extremities Exam Extremities exam: Present: normal inspection, full ROM, normal capillary refill. Absent: tenderness - Back Exam Back exam: Present: normal inspection, full ROM. Absent: CVA tenderness (R), CVA tenderness (L) - Neurological Exam Neurological exam: Present: alert, oriented X3, CN II-XII intact - Skin Skin exam: Present: other (Abscess to the right buttock with purulent discharge.) ED Course Vital Signs 07/28/20 07/29/20 07/29/20 22:58 08:34 08:38 Temperature 98.3 F Pulse Rate 101 H Respiratory 18 18 18 Rate Blood Pressure 156/81 O2 Sat by Pulse 96 100 Oximetry - I & D Buttocks Type of Procedure: Simple Blade Size: 11 I & D Procedure: betadine prep, sterile drapes applied, sterile dressing applied ED Medical Decision Making - Medical Decision Making Patient is 49 years old female with no significant past medical history. Patient presented to the ER complaining of abscess to the right buttock for the last 7 days. Patient stated that his already started draining. Patient stated that she went to [facility] clinic and she was given Bactrim with no im provement. Patient denied any fever or chills. No nausea or vomiting Incision and drainage performed with small amount of pus area cleaned very well, no pockets were found to loculated. Patient given clindamycin IV. Patient advised to follow-up with her primary care physician in the next 2 to 3 days and to return to the ER if she develop any new symptoms. Critical care attestation.: If time is entered above; I have spent that time in minutes in the direct care of this critically ill patient, excluding procedure time. ED Disposition Clinical Impression: Abscess of buttock Disposition: DC-01 TO HOME OR SELFCARE Is pt being admited?: No Condition: Stable Instructions: Skin Abscess, Incision and Drainage, Care After Referrals: PRIMARY CARE, [Primary Care Provider] - 3-5 Days
[2020-07-29] MEDS: MORPHINE 4 MG/1 ML INJ IM ONE (08:38)
[2020-07-29] MEDS: diphenhydrAMINE 50 MG/ML VIAL IM ONE (08:38)
[2020-07-29] MEDS: LIDOCAINE 2%/EPINEPHRINE 1:100,000 VIAL (20 ML) INFILTRATI ONE (08:39)
[2020-07-29] MEDS: fentaNYL 100 MCG/2 ML INJ IV ONE (09:14)
[2020-07-29] MEDS: CLINDAMYCIN 600 MG/50 mL 600 MG/50 ML BAG IV ONE (09:14)
== END 2020-07-29 09:35 | disposition home or self-care (01) ==
LOC: ED 22:48
DX: L02.31 Cutaneous abscess of buttock (principal); I10 Essential (primary) hypertension; Z98.51 Tubal ligation status; Z79.899 Other long term (current) drug therapy; Z91.040 Latex allergy status; Z88.0 Allergy status to penicillin; Z88.6 Allergy status to analgesic agent; Z88.8 Allergy status to other drugs, medicaments and biological substances
CPT/HCPCS: 10060; 96365; 96372; 96375; 99282; J1200; J2270; J3010

== ENCOUNTER 2022-01-19 12:05 | Outpatient (CLI) | payer OTHER ==
--- NOTE | 2022-01-19 14:42 | Cat Scan Report ---
CT ABDOMEN AND PELVIS WITHOUT CONTRAST HISTORY: R31.29 OTHER MICROSCOPIC HEMATURIA. COMPARISON: None. TECHNIQUE: CT images of the abdomen and pelvis were obtained without administration of intravenous co ntrast. All CT scans at this location are performed using CT dose reduction for ALARA by means of au tomated exposure control. FINDINGS: Lungs/bones: There is bilateral lower lobe atelectasis with interstitial prominence in bilateral ple ural effusions. Mild eventration of the left hemidiaphragm. [id number] pericardial effusion Abdomen/pelvis: Within limits of a noncontrast examination the liver, spleen, adrenal glands and [place] appear normal. Small hiatal hernia. Distention of the stomach with fluid and gas. Uterus is enlarged. There is a large masslike density in the left aspect of the uterus which could re present large fibroid measuring 7.9 cm. Probable uterine fibroids. The endometrium is difficult to ev aluate. There is a tiny 1 mm nonobstructing left renal stone. No significant hydronephrosis is seen. Distal ureters are difficult to evaluate due to uterine size. Small sclerotic lesion left iliac bone measures 7 mm soft tissue masslike density seen within the rig ht pelvis with central area of density/calcification measures 3.7 x 3.3 cm. This could represent righ t adnexa. Left adnexa is not seen IMPRESSION: 1. Uterus is markedly enlarged with large uterine fibroids. Evaluation is limited on CT. Right ovary appears enlarged and complex with central area of calcification. Left ovary is not well seen. Pelvic ultrasound could be performed for further evaluation 2. Nonobstructing left renal stone 3. Bilateral pleural effusions. Pericardial effusion. Lower lobe atelectasis. 4. Mild distention of the stomach with fluid and gas. Hiatal hernia is identified. No bowel obstructi on is seen. 5. Small sclerotic lesion measuring 7 mm in left iliac bone could represent small bone island however nonspecific. No other bone lesions are seen. Signer Name: Merritt Mancini MD Signed: 01/19/2022 2:37 PM Workstation Name: [email or web address] [id number]
== END 2022-01-19 12:06 | disposition home or self-care (01) ==
LOC: CT 12:05
PROVIDERS: ATTEND Urology
DX: N20.0 Calculus of kidney (principal); R31.29 Other microscopic hematuria; J98.11 Atelectasis; I31.3 Pericardial effusion (noninflammatory); K44.9 Diaphragmatic hernia without obstruction or gangrene; N85.2 Hypertrophy of uterus; D25.9 Leiomyoma of uterus, unspecified
CPT/HCPCS: 74176